=== PATIENT | female | born 1965 | race Caucasian/White ===

== ENCOUNTER 2021-03-07 14:53 | Inpatient (IN) | payer OTHER ==
[~2021-03-07] VITALS: Ht 170.2 cm; Wt 84.4 kg
[2021-03-07 15:37] LABS: BASOPHILS ABSOLUTE AUTO 0.04 K/mm3 (0.00-0.23); BASOPHILS PERCENT AUTO 1 % (0-2); EOSINOPHILS ABSOLUTE AUTO 0.11 K/mm3 (0.00-0.68); EOSINOPHILS PERCENT AUTO 1 % (0-6); Hematocrit 39.8 % (33.0-51.0); Hemoglobin 12.8 g/dL (11.5-16.0); IMMATURE GRAN ABSOLUTE AUTO 0.03 K/mm3 (0.00-0.10); IMMATURE GRAN PERCENT AUTO 0 % (0-1); LYMPHOCYTES ABSOLUTE AUTO 1.47 K/mm3 (0.84-5.20); LYMPHOCYTES PERCENT AUTO 19 % (21-46); MONOCYTES ABSOLUTE AUTO 0.85 K/mm3 (0.16-1.47); MONOCYTES PERCENT AUTO 11 % (4-13); Mean Corpuscular HGB Conc 32.2 g/dL (31.5-36.5); Mean Corpuscular Volume 93 fL (80-100); Mean Platelet Volume 9.3 fL (9.1-12.4); NEUTROPHILS ABSOLUTE AUTO 5.37 K/mm3 (1.96-9.15); NEUTROPHILS PERCENT AUTO 68 % (41-73); Platelet Count 366 K/mm3 (150-400); RDW Coefficient Variation 14.4 % (11.7-14.2); RDW Standard Deviation 49.4 fL (35.1-46.3); Red Blood Cell Count 4.27 M/mm3 (3.80-5.20); White Blood Cell Count 7.87 K/mm3 (4.00-11.30)
[2021-03-07 15:55] LABS: Alanine Aminotransfer (ALT/SGP 49 U/L (12-78); Albumin, Blood 2.8 g/dL (3.4-5.0); Albumin/Globulin Ratio 0.7 (0.8-1.8); Alk Phos 102 U/L (50-136); Anion Gap 7 mmol/L (6-16); Aspartate Aminotrans (AST/SGOT 41 U/L (12-37); Blood Urea Nitrogen 17 mg/dL (8-24); Bun/Creatinine Ratio 18.6 (12.0-20.0); CO2, Blood 28 mmol/L (21-32); Calcium, Blood 9.2 mg/dL (8.5-10.1); Chloride, Blood 105 mmol/L (98-108); Creatinine, Blood 0.91 mg/dL (0.40-1.00); Globulin, Blood 4.3 g/dL (2.2-4.0); Glomerular Filtration Rate >60 (60-); Glucose, Blood 133 mg/dL (70-99); Potassium, Blood 3.7 mmol/L (3.5-5.5); Sodium, Blood 140 mmol/L (136-145); Total Protein, Blood 7.1 g/dL (6.4-8.2); Troponin I 0.069 ng/mL (0.000-0.040)
[2021-03-07] MEDS ORDERED: FURO20 PO (16:55)
[2021-03-07] MEDS ORDERED: POTCHL20ER PO (16:55)
[2021-03-07 20:10] LABS: SARS-Cov-2 (COVID-19) PCR, MMC NEGATIVE (NEGATIVE)
--- NOTE | 2021-03-08 02:44 | NUR ---
PATIENT IS TEARFUL THIS EVENING, FOUND ROCKING IN BED, TWITCHING AT TIMES, ANXIOUS, CRYING ASKING HOW LONG SHE IS GOING TO BE HERE, STATES SHE CAN'T GET COMFORTABLE, ASKED HER IF SHE HAD ANXIETY, "YES" WHAT DO YOU DO FOR YOUR ANXIETY AT HOME, " i TRY TO RELAX" REPORTS THAT SHE DOESN'T DO RECREATIONAL DRUGS OR DRINKS, NOT ON ANY ANXIETY MEDICATION AT HOME. CALLED MD RECEIVED 1 X TIME ATIVAN 1MG IVP, PATIENT IS CALM AND RESTING IN BED.
--- NOTE | 2021-03-08 03:12 | NUR ---
CALLED IN CARDIOLOGY CONSULT
[2021-03-08 03:51] LABS: Anion Gap 8 mmol/L (6-16); Blood Urea Nitrogen 22 mg/dL (8-24); Bun/Creatinine Ratio 21.8 (12.0-20.0); CO2, Blood 28 mmol/L (21-32); Chloride, Blood 104 mmol/L (98-108); Creatinine, Blood 1.01 mg/dL (0.40-1.00); Glomerular Filtration Rate >60 (60-); Glucose, Blood 118 mg/dL (70-99); Potassium, Blood 3.5 mmol/L (3.5-5.5); Sodium, Blood 140 mmol/L (136-145); Troponin I 0.105 ng/mL (0.000-0.040)
--- NOTE | 2021-03-08 13:17 | NUR ---
UPDATE PHYSICIAN NOTIFIED OF PT'S INCREASING ANXIETY. MEDICATION ORDERED PER PHYSICIAN, SEE EMAR.
--- NOTE | 2021-03-08 17:02 | NUR ---
UPDATE PT DUMPING HAT OUT IN TOILET. STATED SHE FILLED IT "3 TIMES." INSTRUCTED TO INFORM NURSE OR AIDE AFTER VOIDING FOR ACCURATE I&O DOCUMENTATION.
--- NOTE | 2021-03-08 18:28 | NUR ---
SHIFT SUMMARY PT ALERT AND ORIENTED X 4. HR STABLE. BP STABLE. NO CP OR PRESSURE REPORTED. PT IND IN ROOM. ANXIOUS AT TIMES. PHYSICIAN NOTIFIED. PT PROVIDED WITH MEDICATION ORDERED PER PHYSICIAN, PT REPORTS RELIEF. PT PROVIDED WITH EDUCATION MATERIAL REGARDING NEW DX. OXYGEN SATURATION MAINTAINED ABOVE 92% ON RA. WILL CONTINUE TO MONITOR UNTIL REPORT GIVEN TO NIGHTSHIFT RN.
--- NOTE | 2021-03-08 21:29 | NUR ---
PATIENT IS ALERT AND ORIENTATED RESTING PEACEFULLY IN BED WITH THE LIGHTS OFF, WHEN ENTERING THE ROOM AROUND 1900, AROUND 2124 NOTED PATIENT SITTING AT THE EDGE OF BED TEARFUL LOOKING AT THER PHONE, ASKED HER IF THERE IS ANYTHING I CAN DO FOR HER, IF SHE WOULD LIKE SOMETHING FOR ANXIETY, PATIENT DECLINCED FOR NOW. WILL CONTINUE TO MONITOR, PASS ON DAY SHIFT IF SPRITUAL CARE CAN SEE HER AND/OR PYSCHOLOGY CONSULT HELP WITH HER NEW ONSET DISEASE PROCESS AND COPING SKILLS.
--- NOTE | 2021-03-09 01:30 | NUR ---
PATIENT HAS BEEN SLEEPING SINCE 29, PROMOTING REST BEEN TEARFUL THROUGHOUT NIGHT REFUSING ANXIETY MEDICATION.
[2021-03-09 04:24] LABS: Anion Gap 6 mmol/L (6-16); Blood Urea Nitrogen 30 mg/dL (8-24); Bun/Creatinine Ratio 32.2 (12.0-20.0); CO2, Blood 27 mmol/L (21-32); Calcium, Blood 9.2 mg/dL (8.5-10.1); Chloride, Blood 105 mmol/L (98-108); Creatinine, Blood 0.93 mg/dL (0.40-1.00); Glomerular Filtration Rate >60 (60-); Glucose, Blood 124 mg/dL (70-99); Phosphorus, Blood 5.1 mg/dL (2.5-4.9); Potassium, Blood 3.6 mmol/L (3.5-5.5); Sodium, Blood 138 mmol/L (136-145)
--- NOTE | 2021-03-09 06:32 | NUR ---
PATIENT SLEPT UNTIL AROUND 0400 THIS MORNING SHE IS VERY ANXIOUS, TEARFUL, AND DOESN'T WANT TO BE IN THE HOSPITAL ANYMORE. SHE STATED THAT SHE HASN'T SEEN A MD SINCE HER ADMISSION BUT WAS SEEN BY HOSPITALIST AND CARDIOLOGY YESTERDAY. PATIENT FEELS THAT NOTHING IS BEING DONE AND SHE DOESN'T FEEL ANY BETTER. UNABLE TO CALCULATE THE I/O'S PATIENT CONTINUALLY EMPTYING HAT BEFORE RN CAN VISUALIZE, EDUCATION GIVEN BUT PATIENT IS FORGETFUL AT TIMES. THIS RN SPOKE TO CHARGE, RN ABOUT HAVING SPIRITUAL CARE AND/OR PSYCH CONSULT FOR PATIENT TO HELP. SHE IS VERY DISTRAUGHT AND HAVING DIFFICULTY WITH NEW DIAGNOSIS.
--- NOTE | 2021-03-09 07:26 | NUR ---
PHYSICIAN UPDATED PHYSICIAN UPDATED ON PT'S PAIN LEVEL IN HEAD AND ANXIOUS STATE. PT VERY TEARFUL AT THIS TIME. PHYSICIAN TO SEE PT .
--- NOTE | 2021-03-09 09:45 | NUR ---
UPDATE PHYSICIAN AT BEDSIDE THIS AM. PT TO BE MEDICAL W/TELE. ORDERS PUT IN PER PHYSICIAN.
--- NOTE | 2021-03-09 16:00 | NUR ---
UPDATE PT REPORTS "MEDICATIONS AND DX NOT EXPLAINED TO HER." PRIOR TO THIS STATEMENT ALL MEDICATIONS HAD BEEN EXPLAINED TO PT PRIOR TO ADMINISTRATION AND TAUGHT WITH THE TEACH-BACK METHOD. ON 03/08 THIS RN BROUGHT PT PACKETS OF INFORMATION REGARDING NEW DX AND SAT WITH PT EXPLAINING NEW DX OF CHF. PT REPORTS SHE DID NOT SPEAK TO PHYSICIAN REGARDING NEW DX. PHYSICIAN IN PT'S ROOM BOTH ON 03/08 AND AM OF 03/09 SEE NOTES REGARDING PHYSICIAN ASSESSMENT. PT PROVIDED WITH MORE EDUCATION THIS EVENING REGARDING NEW DX OF CHF AND EDUCATION REGARDING ALL NEW MEDICATIONS. DIETARY CONSULT PUT IN FOR NEW DX. PT STATES UNDERSTANDING USING TEACH BACK METHOD.
--- NOTE | 2021-03-09 16:04 | NUR ---
Call back - Pt states "I just want to go home. I can do at home what they are doing here." Pt misses her dog. Pt would like to have an explanation of her plan of care. She is tearful during conversation. Pt explains the doctor told her she "could go home in the morning, but I don't think she told anyone else." Updated Charge Nurse.
--- NOTE | 2021-03-09 17:53 | NUR ---
REPORT GIVEN REPORT GIVEN TO ROOM 337 RN. PT TO BE BROUGHT TO ROOM BY WHEELCHAIR WITH BELONGINGS.
--- NOTE | 2021-03-09 19:34 | NUR ---
SHIFT SUMMARY: PATIENT XFR FROM PCU-07 THIS SHIFT. PT A&O; ANXIOUS; COOPERATIVE WITH CARE. NO C/O PAIN SINCE ARRIVAL ON MEDICAL. 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 PT INDEPENDENT IN ROOM. EXPECTED D/C HOME ON 03/10. REPORT GIVEN TO ONCOMING RN.
[2021-03-10 05:02] LABS: Albumin, Blood 2.8 g/dL (3.4-5.0); Anion Gap 5 mmol/L (6-16); Blood Urea Nitrogen 34 mg/dL (8-24); Bun/Creatinine Ratio 36.1 (12.0-20.0); CO2, Blood 28 mmol/L (21-32); Calcium, Blood 8.8 mg/dL (8.5-10.1); Chloride, Blood 107 mmol/L (98-108); Creatinine, Blood 0.94 mg/dL (0.40-1.00); Glomerular Filtration Rate >60 (60-); Glucose, Blood 105 mg/dL (70-99); Phosphorus, Blood 4.4 mg/dL (2.5-4.9); Potassium, Blood 4.1 mmol/L (3.5-5.5); Sodium, Blood 140 mmol/L (136-145)
--- NOTE | 2021-03-10 05:45 | NUR ---
SHIFT SUMMARY PATIENT ALERT AND ORIENTED. HAD NO COMPLAINTS OF PAIN OR SHORTNESS OF BREATH. DENIES CHEST PAIN OR PRESSURE. SHE IS LOOKING FORWARD TO POSSIBLY GOING HOME BUT IS ANXIOUS REGARDING HER NEW DIAGNOSIS. NO ACUTE ISSUES NOTED OVERNIGHT. IV PATENT AND FLUSHED. BED IN LOWEST POSITION WITH WHEELS LOCKED. CALL LIGHT WITHIN REACH. REPORT GIVEN TO ONCOMING RN.
[2021-03-10] MEDS ORDERED: Prinivil10 MG PO (12:02)
[2021-03-10] MEDS ORDERED: METO25ER PO (12:03)
[2021-03-10] MEDS ORDERED: ASPI81CH PO (12:04)
--- NOTE | 2021-03-10 13:24 | NUR ---
PATIENT DISCHARGE: PATIENT DISCHARGED TO HOME THIS SHIFT. MEDICATION RECONCILIATION COMPLETED; MED LIST FAXED TO [facility]. DISCHARGE EDUCATION COMPLETED WITH PATIENT. PATIENT TRANSPORTED TO EXIT BY [facility] WITH WHEELCHAIR AT 1236. PATIENT DEPARTED [facility] VIA PRIVATE AUTO.
== END 2021-03-10 12:29 | disposition home or self-care (01) | DRG 291 ==
LOC: ER 14:53 → PCU 17:39 → ERHOLD 17:39 → PCU 19:53 → MEDS 03-09 18:36
PROVIDERS: Physician Assistant; ADMIT Family Medicine
DX: I11.0 Hypertensive heart disease with heart failure (principal); I50.21 Acute systolic (congestive) heart failure; I24.8 Other forms of acute ischemic heart disease; I08.0 Rheumatic disorders of both mitral and aortic valves; I43 Cardiomyopathy in diseases classified elsewhere; F41.9 Anxiety disorder, unspecified; Z20.822 Contact with and (suspected) exposure to COVID-19; E11.65 Type 2 diabetes mellitus with hyperglycemia; J44.9 Chronic obstructive pulmonary disease, unspecified; I27.20 Pulmonary hypertension, unspecified; Z88.8 Allergy status to other drugs, medicaments and biological substances; Z87.891 Personal history of nicotine dependence; Z79.899 Other long term (current) drug therapy
CPT/HCPCS: 36415; 71046; 80048; 80053; 80069; 83036; 83880; 84484; 85025; 87081; 87430; 93005; 93010; 94640; 94664; 94760; 96372-59; 96374; 99285-25; 99406; A9270; J0360; J1650; J1940; J2060; U0004

== ENCOUNTER 2024-07-09 16:35 | Inpatient (IN) | payer OTHER ==
[2024-07-09] VITALS (10 sets, daily range): BP systolic 145–168; BP diastolic 89–103
[~2024-07-09] VITALS: Ht 160 cm; Wt 76.4 kg
[~2024-07-09 16:35] MED LIST: ASPI81CH PO; FURO20 PO; METO25ER PO; POTCHL20ER PO; Prinivil10 MG PO
[2024-07-09 16:57] LABS: BASOPHILS ABSOLUTE AUTO 0.07 K/mm3 (0.00-0.23); BASOPHILS PERCENT AUTO 1 % (0-2); EOSINOPHILS ABSOLUTE AUTO 0.04 K/mm3 (0.00-0.68); EOSINOPHILS PERCENT AUTO 0 % (0-6); Hematocrit 33.4 % (33.0-51.0); Hemoglobin 10.8 g/dL (11.5-16.0); IMMATURE GRAN ABSOLUTE AUTO 0.02 K/mm3 (0.00-0.10); IMMATURE GRAN PERCENT AUTO 0 % (0-1); LYMPHOCYTES ABSOLUTE AUTO 1.48 K/mm3 (0.84-5.20); LYMPHOCYTES PERCENT AUTO 15 % (21-46); MONOCYTES ABSOLUTE AUTO 0.75 K/mm3 (0.16-1.47); MONOCYTES PERCENT AUTO 8 % (4-13); Mean Corpuscular HGB 30.6 pg (26.0-34.0); Mean Corpuscular HGB Conc 32.3 g/dL (31.5-36.5); Mean Corpuscular Volume 95 fL (80-100); Mean Platelet Volume 9.6 fL (9.1-12.4); NEUTROPHILS ABSOLUTE AUTO 7.42 K/mm3 (1.96-9.15); NEUTROPHILS PERCENT AUTO 76 % (41-73); Platelet Count 326 K/mm3 (150-400); RDW Coefficient Variation 12.9 % (11.7-14.2); RDW Standard Deviation 44.2 fL (35.1-46.3); Red Blood Cell Count 3.53 M/mm3 (3.80-5.20); White Blood Cell Count 9.78 K/mm3 (4.00-11.30)
[2024-07-09 17:14] LABS: Albumin, Blood 3.1 g/dL (3.4-5.0); Albumin/Globulin Ratio 0.8 (0.8-1.8); Bilirubin, Total 1.3 mg/dL (0.1-1.0); Bun/Creatinine Ratio 19.8 (12.0-20.0); Calcium, Blood 8.7 mg/dL (8.5-10.1); Creatinine, Blood 0.91 mg/dL (0.40-1.00); Globulin, Blood 3.7 g/dL (2.2-4.0); Potassium, Blood 4.1 mmol/L (3.5-5.5); Total Protein, Blood 6.8 g/dL (6.4-8.2)
[2024-07-09] MEDS ORDERED: Nitroglycerin/D5W 250 ML IV ONE (17:25)
[2024-07-09] MEDS ORDERED: Furosemide 10 MG/ML 10ML Vial IV ONE (17:25)
[2024-07-09 18:25] LABS: Source, Urine Foley catheter
[2024-07-09] MEDS ORDERED: FLU VACC TS2024-25(6MOS UP)/PF 45 MCG/0.5 ML SYRINGE IM SCH (18:45)
[2024-07-09] MEDS ORDERED: Ondansetron HCl 2 MG / ML 2ML Vial IV PRN (18:45)
[2024-07-09] MEDS ORDERED: Enoxaparin 40 MG/0.4 ML SYR SC SCH (19:00)
[2024-07-09] MEDS ORDERED: HydrALAZINE HCl 20 MG / ML 1ML Vial IV PRN (19:05)
[2024-07-09 19:06] LABS: Appearance, Urine Clear (Clear); Bilirubin, Urine Neg (Neg); Blood, Urine Neg (Neg); Glucose Qualitative, Urine Neg (Neg); Ketones, Urine Neg (Neg); Leukocyte Esterase, Urine Neg (Neg); Nitrite, Urine Neg (Neg); Protein, Urine 2+ (Neg); Specific Gravity, Urine 1.015 (1.003-1.022); Urobilinogen, Urine NORM (Normal)
[2024-07-09 19:49] LABS: Color, Urine Pale Yellow (P-Yellow)
[2024-07-09 19:50] LABS: Amorphous Light (0-Heavy); Bacteria Mod /hpf; Mucus Light (0-Heavy); Red Blood Cells, Urine 0-2 /hpf (0-2); Squamous Epithelial Cells Rare /hpf (Few); White Blood Cells, Urine 0-2 /hpf (0-5)
[2024-07-09 20:07] LABS: Source, Urine Clean Catch
[2024-07-09 20:16] LABS: Appearance, Urine Clear (Clear); Bilirubin, Urine Neg (Neg); Blood, Urine Neg (Neg); Glucose Qualitative, Urine Neg (Neg); Ketones, Urine Neg (Neg); Leukocyte Esterase, Urine Neg (Neg); Nitrite, Urine Neg (Neg); Protein, Urine Neg (Neg); Urobilinogen, Urine NORM (Normal)
[2024-07-09 20:31] LABS: Color, Urine Pale Yellow (P-Yellow)
--- NOTE | 2024-07-09 22:00 | NUR ---
ARRIVAL FROM ED PT ARRIVED FROM ED AT APPROX 2039. PT A/O x4, ABLE TO ANSWER QUESTIONS APPROPRIATELY. PT DENIES PAIN. PT ON 2 L N/C, O2 SATS > 90%. CARDIAC MONITORING REFELCTS NSR, HR 70s-80s. SBP 160s, PT ON NITRO GTT WHEN TRANSFERED FROM ED TO ICU, HOSPITALIST AT BEDSIDE WHEN PT ARRIVED FROM ED AND GAVE VERBAL ORDER TO PT NITRO GTT ON SB AND TO USE PRN HYDRALAZINE PER EMAR. SBP GOAL < 170 PER HOSPITALIST. PIV x2 SL. HEATH PATENT AND DRAINING TO GRAVITY. PER HOSPITALIST KEEP PT NPO FOR NOW BUT SMALL SIPS OF FLUIDS OKAY.
[2024-07-10] VITALS (37 sets, daily range): BP systolic 128–176; BP diastolic 68–144
[2024-07-10 03:50] LABS: BASOPHILS ABSOLUTE AUTO 0.07 K/mm3 (0.00-0.23); BASOPHILS PERCENT AUTO 1 % (0-2); EOSINOPHILS ABSOLUTE AUTO 0.15 K/mm3 (0.00-0.68); EOSINOPHILS PERCENT AUTO 2 % (0-6); Hematocrit 36.1 % (33.0-51.0); Hemoglobin 11.6 g/dL (11.5-16.0); IMMATURE GRAN ABSOLUTE AUTO 0.01 K/mm3 (0.00-0.10); IMMATURE GRAN PERCENT AUTO 0 % (0-1); LYMPHOCYTES ABSOLUTE AUTO 2.46 K/mm3 (0.84-5.20); LYMPHOCYTES PERCENT AUTO 27 % (21-46); MONOCYTES ABSOLUTE AUTO 0.81 K/mm3 (0.16-1.47); MONOCYTES PERCENT AUTO 9 % (4-13); Mean Corpuscular HGB 30.1 pg (26.0-34.0); Mean Corpuscular HGB Conc 32.1 g/dL (31.5-36.5); Mean Corpuscular Volume 94 fL (80-100); NEUTROPHILS ABSOLUTE AUTO 5.49 K/mm3 (1.96-9.15); NEUTROPHILS PERCENT AUTO 61 % (41-73); Platelet Count 342 K/mm3 (150-400); RDW Coefficient Variation 12.8 % (11.7-14.2); RDW Standard Deviation 43.1 fL (35.1-46.3); Red Blood Cell Count 3.86 M/mm3 (3.80-5.20); White Blood Cell Count 8.99 K/mm3 (4.00-11.30)
[2024-07-10 04:17] LABS: Albumin, Blood 3.3 g/dL (3.4-5.0); Albumin/Globulin Ratio 0.8 (0.8-1.8); Bilirubin, Total 1.8 mg/dL (0.1-1.0); Bun/Creatinine Ratio 16.7 (12.0-20.0); Calcium, Blood 9.5 mg/dL (8.5-10.1); Creatinine, Blood 1.02 mg/dL (0.40-1.00); Globulin, Blood 4.1 g/dL (2.2-4.0); Potassium, Blood 3.3 mmol/L (3.5-5.5); Total Protein, Blood 7.4 g/dL (6.4-8.2)
[2024-07-10] MEDS ORDERED: Potassium Chloride 20 MEQ TabCR PO ONE (04:25)
--- NOTE | 2024-07-10 05:22 | NUR ---
SHIFT SUMMARY PT REMAINS A/O x4, ABLE TO ANSWER QUESTIONS APPROPRIATELY. PT ON 2 L N/C, O2 SATS > 90%. PT ATTEMPTED TO WEAR BIPAP TWICE THIS SHIFT, QUICKLY TOOK IT OFF AND STARTED TO CRY, STATING THAT IT "MAKING HER PANIC". PT DECLINED THIS RN CONTACTING HOSPITALIST AND REQUESTING ANTI-ANXIETY MEDICATIONS TO TOLERATE BIPAP. PT EDUCATED ON IMPORTANCE OF BIPAP AND IT'S USE FOR FLUID OVERLOAD. CARDIAC MONITORING HAS GONE BETWEEN NSR AND IRREGULAR RHYTHM THIS SHIFT. HR 70s. NITRO GTT REMAINED OFF. SBP 130s AT THIS TIME. PIV x2 SL. NOTIFIED HOSPITALIST OF [facility], SEE EMAR FOR NEW ORDERS.
[2024-07-10] MEDS ORDERED: NS 250 ML IV PRN (08:15)
[2024-07-10] MEDS ORDERED: Metoprolol Succinate 25 MG TABCR PO SCH (09:00)
[2024-07-10] MEDS ORDERED: Furosemide 10 MG/ML 4ML Vial IV SCH (09:00)
[2024-07-10] MEDS ORDERED: Doxycycline Hyclate 100 MG TAB PO SCH (09:00)
[2024-07-10] MEDS ORDERED: Lactobacil 2-S.Thermo-Bifido 1 1 Cap PO SCH (09:00)
[2024-07-10] MEDS ORDERED: Lisinopril 10 MG Tab PO SCH (09:00)
[2024-07-10] MEDS ORDERED: CefTRIAXone Sodium 1,000 MG in NS 100 ML IV SCH (09:00)
[2024-07-10] MEDS ORDERED: Aspirin 81 MG Chew PO SCH (09:00)
[2024-07-10] MEDS ORDERED: Furosemide 10 MG / ML 2ML Vial IV SCH (09:00)
--- NOTE | 2024-07-10 10:01 | NUR ---
ASSUMED CARE BEDSIDE REPORT FROM ANDR[facility] STACK AT 0700. PT RESTING IN BED. WAKES c VERBAL STIMULI. A&OX 4. ABLE TO MAKE NEEDS KNOWN. REPORTS THAT SHE IS TIRED. REPORTS HX OF CHF BUT DOES NOT TAKE ANY MEDS. SR, RATE 60'S. BP STABLE. LUNGS c CRACKLES IN BASES. 3L VIA NC, O2 SATS MID 90'S. MOIST COUGH, UNPRODUCTIVE. ABD ROUND, SOFT, NON TENDER, BT X 4. TOLERATING PO WELL. HEATH PATENT, DRAINING CLEAR YELLOW URINE TO GRAVITY. DIURESING. DR FABIAN ROUNDED. STATUS CHANGED TO MED c TELE. WILL CONTINUE PLAN OF CARE.
[2024-07-10] MEDS ORDERED: Empagliflozin 10 MG TAB PO SCH (11:00)
--- NOTE | 2024-07-10 13:07 | NUR ---
PATIENT WILL BE TRANSFERRING TO [facility]. PRIMARY NURSE, JOHNNIE NOTIFIED.
--- NOTE | 2024-07-10 13:39 | NUR ---
TRANSFER TO MEDICAL FLOOR NO ACUTE CHANGES THIS SHIFT. TITRATED O2 TO 1L VIA NC. CONTINUES TO HAVE CRACKLES IN BASES. VSS. 1600 ML URINE OUT. REPORT TO JOHNNIE STACK. PT TRANSFERRED TO 339 c ALL BELONGINGS.
--- NOTE | 2024-07-10 18:37 | NUR ---
REPORT RECEIVED VERIFIED, PT ARRIVED FROM ICU VIA WHEELCHAIR, A/O, VSS, NO COMPLAINTS, REQUESTING SNACKS. WALKED IN AND PT WAS OVER HEATED DUE TO SUN SHINING THROUGH SHADES, PT WAS CRYING AND STATING SHE REALLY WANTED TO LEAVE. I WAS ABLE TO COOL DOWN PT WITH WASH CLOTH AND ENC PT TO STAY ATLEAST UNTIL BLOOD WORK LOOKED BETTER. PT COOLED DOWN AND IS NOW FEELING BETTER WITH SNACKS AT BEDSIDE.
--- NOTE | 2024-07-11 04:08 | NUR ---
SHIFT SUMMARY PATIENT HAD NO ACUTE CHANGES. AXOX 4 AND INDEPENDENT IN ROOM. ANXIOUS X ONE WHEN SHE FELT LINES FROM TELEMETRY AND O2 WHERE TANGLED AND HEATH UNCOMFORTABLE. LINES STRAIGHTEN, BED LINENS ADJUSTED, HEATH DRAINED AND PILLOW RE-ADJUSTED. DENIES CHEST PAIN, SOB, AND N/V. HEATH PATENT AND DRAINING TO GRAVITY FOR I&O'S. PIV INTACT. TELE MONITOR NSR 67. ON 1.5 L O2 NC. ABLE TO SLEEP ONCE SETTLED IN BED. CALL LIGHT IN REACH. BED IN LOWEST POSITION. WILL CONTINUE TO MONITOR UNTIL DAY SHIFT NURSE ASSUMES CARE.
[2024-07-11 07:30] VITALS: BP 107/66
[2024-07-11] MEDS ORDERED: Potassium Chloride 10 Meq Tablet SA PO SCH (08:00)
[2024-07-11] MEDS ORDERED: Torsemide 20 MG TAB PO SCH (09:00)
[2024-07-11 10:29] LABS: U Amphetamine Screen DETECTED; U Barbituate Screen Not Detected; U Benzodiazapine Screen Not Detected; U Buprenorphine Screen Not Detected; U Cannabinoids Screen Not Detected; U Cocaine Screen Not Detected; U Methadone Screen Not Detected; U Methamphetamine Screen DETECTED; U Opiates Screen Not Detected; U Oxycodone Screen Not Detected; U Phencyclidine Screen Not Detected
[2024-07-11 11:31] LABS: Bun/Creatinine Ratio 30.9 (12.0-20.0); Calcium, Blood 9.6 mg/dL (8.5-10.1); Creatinine, Blood 1.1 mg/dL (0.40-1.00)
[2024-07-11] MEDS ORDERED: Lisinopril 5 MG Tab PO SCH (12:00)
[2024-07-11 12:55] VITALS: BP 124/63
[2024-07-11 15:45] VITALS: BP 123/70
--- NOTE | 2024-07-11 17:14 | NUR ---
report receved verified, pt a/o and very emotional this morning, wants to go home. no change in condition still SWIFT and has moist cough, dr cardenas was in and ordered urine tox screen, pt was positive for amphetamines and methamphetamins, so is possibly detoxing at the moment. though pt is wanting to go home she understands she needs to stay until heart strain lessens. pt call appropiatly and makes needs known.
[2024-07-11 19:57] VITALS: BP 120/72
--- NOTE | 2024-07-12 04:37 | NUR ---
SUMMARY: PT A/OX4, CALLS APPROPRIATELY TO SPECIFY NEEDS AND IS PLEASANT AND COOPERATIVE W/CARE. SHE'S SBA OOB AND AWARE OF LIMITATIONS. TRACE EDEMA PERSISTS TO BLE'S BUT IS IMPROVING W/DIURESIS. HEATH REMAINS PATENT/DRAINING. PT IS NSR AT 60'S-70'S BPM ON TELE AND REMAINS ON 1.5L O2 VIA NC W/SPO2 WNL. NO ACUTE CHANGES, VSS/AFEBRILE. WCTM AND REPORT TO DAY RN.
[2024-07-12 05:33] VITALS: BP 101/65
[2024-07-12 06:53] LABS: Bun/Creatinine Ratio 32.2 (12.0-20.0); Calcium, Blood 9.4 mg/dL (8.5-10.1); Creatinine, Blood 1.49 mg/dL (0.40-1.00); Potassium, Blood 3.9 mmol/L (3.5-5.5)
[2024-07-12 07:14] VITALS: BP 119/59
--- NOTE | 2024-07-12 11:26 | NUR ---
PT ON ROOM AIR WITH SATS AT 95% AT REST AFTER NO OXYGEN FOR 20 MINUTES. PT AMBULATED IN ROOM ON RA AND SATURATIONS REMAINED 95-97%. PT REPORTED SHE DID NOT FEEL SOB WITH AMBULATION.
--- NOTE | 2024-07-12 11:27 | NUR ---
PT HAS VOIDED POST REMOVAL OF HEATH CATHETER. PVR BLADDER SCAN REVEALED 0 MLS OF URINE IN BLADDER.
[2024-07-12] MEDS ORDERED: DOXY100 PO (12:11)
[2024-07-12] MEDS ORDERED: JARDIANCE10 MG PO (12:12)
[2024-07-12] MEDS ORDERED: LISI5 PO (12:14)
[2024-07-12] MEDS ORDERED: FURO40 PO (12:14)
--- NOTE | 2024-07-12 13:10 | NUR ---
DISHCHARGE NOTE PT GOT HERSELF DRESSED. PT DISCHARGED HOME. PT EDUCATED ON DISCHARGE MEDS AND INSTRUCTIONS. PT WHEELED OUT VIA WHEELCHAIR, PT ESCORTED BY FRIEND. PT TOOK BELONGINGS HOME.
[2024-07-13] MEDS ORDERED: Furosemide 10 MG/ML 4ML Vial IV SCH (09:00)
== END 2024-07-12 13:47 | disposition home or self-care (01) | DRG 291 ==
LOC: ER 16:35 → ERHOLD 18:44 → ICUE 18:44 → MEDS 07-10 13:49
PROVIDERS: Internal Medicine; Student in an Organized Health Care Education/Training Program; ADMIT Internal Medicine
DX: I11.0 Hypertensive heart disease with heart failure (principal); I50.21 Acute systolic (congestive) heart failure; J18.9 Pneumonia, unspecified organism; J96.01 Acute respiratory failure with hypoxia; I16.1 Hypertensive emergency; E87.6 Hypokalemia; F15.10 Other stimulant abuse, uncomplicated; Z87.891 Personal history of nicotine dependence; Z79.82 Long term (current) use of aspirin; Z79.899 Other long term (current) drug therapy
CPT/HCPCS: 36415; 51702; 71045; 80048; 80053; 81001; 81003; 83735; 83880; 84484; 85025; 93005; 93010; 93306; 94660; 94760; 94762; 96365-59; 96375-59; 99285-25; A9270; J0696; J1650; J1940; J7050

== ENCOUNTER 2025-01-29 11:44 | Observation (INO) | payer OTHER ==
[~2025-01-29] VITALS: Ht 170.2 cm; Wt 83.1 kg
[~2025-01-29 11:44] MED LIST changes: +DOXY100 PO; +FURO40 PO; +JARDIANCE10 MG PO; +LISI5 PO
[2025-01-29 12:16] LABS: BASOPHILS ABSOLUTE AUTO 0.05 K/mm3 (0.00-0.23); BASOPHILS PERCENT AUTO 1 % (0-2); EOSINOPHILS ABSOLUTE AUTO 0.03 K/mm3 (0.00-0.68); EOSINOPHILS PERCENT AUTO 0 % (0-6); Hematocrit 34.8 % (33.0-51.0); Hemoglobin 11.2 g/dL (11.5-16.0); IMMATURE GRAN ABSOLUTE AUTO 0.02 K/mm3 (0.00-0.10); IMMATURE GRAN PERCENT AUTO 0 % (0-1); LYMPHOCYTES ABSOLUTE AUTO 1.25 K/mm3 (0.84-5.20); LYMPHOCYTES PERCENT AUTO 14 % (21-46); MONOCYTES ABSOLUTE AUTO 0.66 K/mm3 (0.16-1.47); MONOCYTES PERCENT AUTO 7 % (4-13); Mean Corpuscular HGB Conc 32.2 g/dL (31.5-36.5); Mean Corpuscular Volume 96 fL (80-100); Mean Platelet Volume 9.6 fL (9.1-12.4); NEUTROPHILS ABSOLUTE AUTO 7.09 K/mm3 (1.96-9.15); NEUTROPHILS PERCENT AUTO 78 % (41-73); Platelet Count 304 K/mm3 (150-400); RDW Coefficient Variation 13.4 % (11.7-14.2); RDW Standard Deviation 47.5 fL (35.1-46.3); Red Blood Cell Count 3.61 M/mm3 (3.80-5.20)
[2025-01-29 12:37] LABS: Albumin, Blood 3.3 g/dL (3.4-5.0); Albumin/Globulin Ratio 0.8 (0.8-1.8); Bilirubin, Total 1.4 mg/dL (0.1-1.0); Bun/Creatinine Ratio 19.8 (12.0-20.0); Calcium, Blood 8.8 mg/dL (8.5-10.1); Creatinine, Blood 0.81 mg/dL (0.40-1.00); Potassium, Blood 3.9 mmol/L (3.5-5.5); Total Protein, Blood 7.3 g/dL (6.4-8.2)
[2025-01-29] MEDS ORDERED: Furosemide 10 MG/ML 4ML Vial IV ONE (14:35)
[2025-01-29 15:13] LABS: C-REACTIVE PROTEIN, EXT RANGE 1.43 mg/dL (0.000-0.300)
[2025-01-29 15:23] LABS: Thyroid Stimulating Hormone 0.776 uIU/mL (0.360-4.800)
[2025-01-29] MEDS ORDERED: Metoprolol Succinate 25 MG TABCR PO SCH (17:00)
[2025-01-29] MEDS ORDERED: Lisinopril 5 MG Tab PO SCH (17:00)
[2025-01-29] MEDS ORDERED: Empagliflozin 10 MG TAB PO SCH (17:00)
[2025-01-29 17:55] LABS: Cholesterol 182 mg/dL (50-200); HDL Cholesterol 61 mg/dL (>39); LDL/HDL RATIO 1.7; Low Density Lipoprotein Chol 101 mg/dL (0-110); Triglycerides 100 mg/dL (30-160); Very Low Density Lipoprot Chol 20 mg/dL (6-32)
[2025-01-29] MEDS ORDERED: Furosemide 10 MG/ML 4ML Vial IV SCH (18:00)
[2025-01-29 18:20] VITALS: BP 155/90
[2025-01-29 19:25] VITALS: BP 126/66
[2025-01-29] MEDS ORDERED: Magnesium Sulf 2 GM/Water 50ML 50 ML IV ONE (20:30)
[2025-01-29] MEDS ORDERED: NS 250 ML IV PRN (20:35)
[2025-01-29 22:31] LABS: U Amphetamine Screen Not Detected; U Barbituate Screen Not Detected; U Benzodiazapine Screen Not Detected; U Buprenorphine Screen Not Detected; U Cannabinoids Screen Not Detected; U Cocaine Screen Not Detected; U Methadone Screen Not Detected; U Methamphetamine Screen Not Detected; U Opiates Screen Not Detected; U Oxycodone Screen Not Detected; U Phencyclidine Screen Not Detected
[2025-01-29 23:58] VITALS: BP 150/88
[2025-01-30 04:18] VITALS: BP 144/87
--- NOTE | 2025-01-30 05:11 | NUR ---
SUMMARY: PT A/OX4, CALLS APPROPRIATELY TO SPECIFY NEEDS AND IS PLEASANT AND COOPERATIVE W/CARE. SHE'S AWARE OF LIMITATIONS AND T/F'S SELF AD SHANNAN TO BSC BUT IS SBA FOR DISTANCE. PT IS SLIGHTLY SOB W/EXERTION AND HAS COARSE LS TO BILAT LOWER LOBES BUT SPO2 IS WNL ON RA AND NO S/S DYSPNEA OBSERVED. SHE REMAINS ON TELE IN NSR AT 60'S-90'S BPM BUT HAD 5 SEC EPISODE SVT W/HR 140'S FOLLOWED BY PROLONGED QTC 0.52 SECS. CAROL (LOAN OFFICER) MADE AWARE W/2GM IV MAG.SULFATE RX'D AND RECEIVED, NO FURTHER IRREGULARITY OR ECTOPY REPORTED. ECHO PLANNED THIS AM. BLE PERSISTS BUT IS IMPROVING W/IV DIURESIS. URINE SPECIMEN WAS OBTAINED AND SENT W/U.TOX (-). NO ACUTE CHANGES, VSS/AFEBRILE. CARE [facility] REFERRAL PENDING FOR HOMELESSNESS/UNHOUSED. WILL REPORT TO DAY RN.
[2025-01-30 05:16] LABS: BASOPHILS ABSOLUTE AUTO 0.06 K/mm3 (0.00-0.23); BASOPHILS PERCENT AUTO 1 % (0-2); EOSINOPHILS ABSOLUTE AUTO 0.18 K/mm3 (0.00-0.68); EOSINOPHILS PERCENT AUTO 2 % (0-6); Hematocrit 34.5 % (33.0-51.0); Hemoglobin 11.3 g/dL (11.5-16.0); IMMATURE GRAN ABSOLUTE AUTO 0.02 K/mm3 (0.00-0.10); IMMATURE GRAN PERCENT AUTO 0 % (0-1); LYMPHOCYTES ABSOLUTE AUTO 2.05 K/mm3 (0.84-5.20); LYMPHOCYTES PERCENT AUTO 27 % (21-46); MONOCYTES ABSOLUTE AUTO 0.67 K/mm3 (0.16-1.47); MONOCYTES PERCENT AUTO 9 % (4-13); Mean Corpuscular HGB 30.9 pg (26.0-34.0); Mean Corpuscular HGB Conc 32.8 g/dL (31.5-36.5); Mean Corpuscular Volume 94 fL (80-100); Mean Platelet Volume 9.9 fL (9.1-12.4); NEUTROPHILS ABSOLUTE AUTO 4.63 K/mm3 (1.96-9.15); NEUTROPHILS PERCENT AUTO 61 % (41-73); Platelet Count 305 K/mm3 (150-400); RDW Coefficient Variation 13.4 % (11.7-14.2); Red Blood Cell Count 3.66 M/mm3 (3.80-5.20); White Blood Cell Count 7.61 K/mm3 (4.00-11.30)
[2025-01-30 05:38] LABS: Albumin, Blood 3.1 g/dL (3.4-5.0); Albumin/Globulin Ratio 0.8 (0.8-1.8); Bilirubin, Total 1.2 mg/dL (0.1-1.0); Bun/Creatinine Ratio 18.6 (12.0-20.0); Calcium, Blood 8.9 mg/dL (8.5-10.1); Creatinine, Blood 1.18 mg/dL (0.40-1.00); Globulin, Blood 3.8 g/dL (2.2-4.0); Potassium, Blood 3.6 mmol/L (3.5-5.5); Total Protein, Blood 6.9 g/dL (6.4-8.2)
[2025-01-30 07:13] VITALS: BP 136/68
--- NOTE | 2025-01-30 07:53 | NUR ---
0750- VERBAL FROM MD DOVER TO DC RETAIL SALESWORKER ORDER.
[2025-01-30] MEDS ORDERED: Potassium Chloride 20 MEQ/15 ML UDC PO ONE (08:00)
[2025-01-30] MEDS ORDERED: Furosemide 10 MG/ML 4ML Vial IV SCH (09:00)
[2025-01-30 11:40] VITALS: BP 133/92
[2025-01-30 11:42] VITALS: BP 114/61
[2025-01-30 15:14] VITALS: BP 133/81
[2025-01-30] MEDS ORDERED: JARDIANCE10 MG PO (15:40)
--- NOTE | 2025-01-30 17:04 | NUR ---
1555-DC PT LEFT IN STABLE CONDITION. PT LEFT WITH ALL BELONGINGS. PT'S ONE NEW RX WAS FAXED TO [facility] [place]. THIS RN ALSO CALLED [facility] MULTIPLE TIMES TO GIVE VERBAL ORDER TO PHARMACIST WITH NO ANSWER FROM PHARMACY-AFTER PHARMACY CALLED AND ASKED FOR VERBAL ORDER.
== END 2025-01-30 16:02 | disposition home or self-care (01) ==
LOC: ER 11:44 → MEDS 11:45
PROVIDERS: Family Medicine; Physician Assistant; Student in an Organized Health Care Education/Training Program; ADMIT Internal Medicine
DX: I11.0 Hypertensive heart disease with heart failure (principal); I50.23 Acute on chronic systolic (congestive) heart failure; F17.200 Nicotine dependence, unspecified, uncomplicated; E11.9 Type 2 diabetes mellitus without complications; Z66 Do not resuscitate; Z79.899 Other long term (current) drug therapy; Z88.8 Allergy status to other drugs, medicaments and biological substances
CPT/HCPCS: 36415; 71046; 80053; 80061; 82947; 83036; 83735; 83880; 84443; 84484; 85025; 86140; 93005; 93010; 96374; 96375; 96376; 99285-25; A9270; C8929; G0378; J1938; J1940; J3475; J7050; Q9957